=== PATIENT | male | born 1955 | race American Indian/Alaskan Native ===

== ENCOUNTER 2017-08-23 10:18 | Day surgery (SDC) | payer OTHER ==
[2017-08-13 11:53] VITALS: BMI 59.3
[2017-08-23 11:40] LABS: INR 1.17 (0.93-1.08); PROTHROMBIN TIME 13.5 SECONDS (9.4-12.5)
[2017-08-23] MEDS ORDERED: Propofol 10 mg/ml Inj (20 ML) ONE (12:49)
[2017-08-23] MEDS ORDERED: Sodium Chloride 0.9% 1,000 ML IV SCH (13:00)
[2017-08-23] MEDS ORDERED: Atropine 0.4 mg/ml Inj (1 mL) ONE (13:08)
[2017-08-23 14:55] VITALS: BP 138/78; PULSE 63; RESP 15; TEMP 98; O2SAT 96
== END 2017-08-23 14:50 | disposition home or self-care (01) ==
LOC: ENDO 10:18
PROVIDERS: ATTEND Internal Medicine
DX: Z12.11 Encounter for screening for malignant neoplasm of colon (principal); K63.5 Polyp of colon; K62.1 Rectal polyp; K57.30 Diverticulosis of large intestine without perforation or abscess without bleeding; K64.8 Other hemorrhoids
CPT/HCPCS: 36415; 45380; 85610; 88305; J0461; J2001; J2704; J7040 ×2

== ENCOUNTER 2017-10-02 08:45 | Day surgery (SDC) | payer OTHER ==
[2017-08-13 11:53] VITALS: BMI 59.3
[2017-10-02 09:23] LABS: INR 1.13 (0.93-1.08); PROTHROMBIN TIME 13.6 SECONDS (9.4-12.5)
[2017-10-02] MEDS ORDERED: Lactated Ringer's 1,000 ML IV SCH (11:00)
[2017-10-02] MEDS ORDERED: Etomidate 20 mg/10ml Inj IV ONE ×2 (11:03→11:14)
[2017-10-02] MEDS ORDERED: Propofol 10 mg/ml Inj (20 ML) ONE (11:04)
[2017-10-02] MEDS ORDERED: Lidocaine 1% Inj (20ml) ONE (11:04)
[2017-10-02 13:03] VITALS: BP 173/104; PULSE 56; RESP 16; TEMP 97.6; O2SAT 99
== END 2017-10-02 13:30 | disposition home or self-care (01) ==
LOC: ENDO 08:45
PROVIDERS: ATTEND Internal Medicine
DX: Z12.11 Encounter for screening for malignant neoplasm of colon (principal); D12.5 Benign neoplasm of sigmoid colon; D12.3 Benign neoplasm of transverse colon; K63.5 Polyp of colon; K57.30 Diverticulosis of large intestine without perforation or abscess without bleeding; K64.8 Other hemorrhoids; I48.91 Unspecified atrial fibrillation; I34.0 Nonrheumatic mitral (valve) insufficiency
CPT/HCPCS: 36415; 45380; 45381; 45385; 85610; 88305; J2704; J2765; J7040; J7120